=== PATIENT | female | born 1960 | race Caucasian/White ===

== ENCOUNTER 2024-08-06 10:21 | Emergency (ER) | payer OTHER ==
[~2024-08-06] VITALS: Ht 167.6 cm; Wt 76.7 kg
[~2024-08-06 10:21] MED LIST: CIME400T PO; ORPH100T2 PO; TIZA-180 PO; TRAM50TA2 PO
[2024-08-06 11:37] LABS: BASOPHILS % (AUTO) 0.7 % (0.0-2.0); EOSINOPHILS # (AUTO) 0.3 K/uL (0.0-0.7); HEMATOCRIT 41.1 % (31.2-41.9); HEMOGLOBIN 13.9 g/dL (10.9-14.3); LYMPHOCYTES # (AUTO) 1.8 K/uL (0.8-4.8); LYMPHOCYTES % (AUTO) 32.6 % (20.5-51.5); MEAN CORPUSCULAR HEMOGLOBIN 32.5 uug (24.7-32.8); MEAN CORPUSCULAR HGB CONC 34 g/dL (32.3-35.6); MEAN CORPUSCULAR VOLUME 96.2 fL (75.5-95.3); MONOCYTES # (AUTO) 0.4 K/uL (0.1-1.30); MONOCYTES % (AUTO) 7.1 % (0.0-11.0); NEUTROPHILS % (AUTO) 53.6 % (38.5-71.5); PLATELET COUNT (AUTO) 241 K/uL (179-408); RED BLOOD CELL COUNT(AUTO) 4.28 MIL/uL (3.63-4.92); RED CELL DISTRIBUTION WIDTH 12.4 % (12.3-17.7); WHITE BLOOD COUNT (AUTO) 5.5 K/uL (3.8-11.8)
[2024-08-06] MEDS ORDERED: MECLIZINE HCL 25 MG TABLET ONE (11:46)
[2024-08-06 11:47] LABS: CALCIUM 9.9 mg/dL (8.5-10.1); CARBON DIOXIDE 26 mmol/L (21-32); CHLORIDE 108 mmol/L (98-107); CREATININE 0.8 mg/dL (0.6-1.3); GLUCOSE 103 mg/dL (74-106); POTASSIUM 4.3 mmol/L (3.5-5.1); SODIUM SERUM 144 mmol/L (136-145); UREA NITROGEN, BLOOD 11 mg/dL (7-18)
[2024-08-06] MEDS: MECLIZINE HCL 25 MG TABLET PO ONE (11:47)
[2024-08-06 12:01] LABS: DIFFERENTIAL COMMENT 1
[2024-08-06 12:02] LABS: ALANINE AMINOTRANSFERASE 23 U/L (14-59); ALBUMIN 3.4 g/dL (3.4-5.0); ALKALINE PHOSPHATASE 111 U/L (50-136); ASPARTATE AMINOTRANSFERASE 16 U/L (15-37); BILIRUBIN,DIRECT 0.1 mg/dL (0.0-0.2); BILIRUBIN,TOTAL 0.3 mg/dL (0.2-1.0); NT-PRO BNP 76 pg/mL (0-125); TOTAL PROTEIN, SERUM 6.8 g/dL (6.4-8.2)
[2024-08-06] MEDS ORDERED: METOCLOPRAMIDE HCL 10 MG/2 ML VIAL ONE (12:46)
[2024-08-06] MEDS ORDERED: diphenhydrAMINE 50 MG/1 ML VIAL ONE (12:48)
[2024-08-06] MEDS: diphenhydrAMINE 50 MG/1 ML VIAL IV ONE (12:52)
[2024-08-06] MEDS: METOCLOPRAMIDE HCL 10 MG/2 ML VIAL IV ONE (12:52)
[2024-08-06] MEDS ORDERED: SWABABLE VALVE TRANSFER SET EA MC ONE (13:33)
[2024-08-06] MEDS ORDERED: IOHEXOL 350 100 ML INFUS..BTL ONE (13:33)
[2024-08-06] MEDS ORDERED: IV NORMAL SALINE 250 ML IV ONE (13:34)
[2024-08-06] MEDS ORDERED: PRED50TA PO (15:30)
[2024-08-06] MEDS ORDERED: MECL-159 PO (15:30)
[2024-08-06 15:48] VITALS: BP 129/65; TEMP 97.8; O2SAT 98
== END 2024-08-06 15:49 | disposition home or self-care (01) ==
LOC: ER 10:21
DX: R42 Dizziness and giddiness (principal); R94.31 Abnormal electrocardiogram [ECG] [EKG]; Z79.52 Long term (current) use of systemic steroids; Z88.5 Allergy status to narcotic agent; Z88.7 Allergy status to serum and vaccine
CPT/HCPCS: 99285; 70496; 96374; 96375; 80076; 80048; 83880; 85025; 85651; 85730; 84484; 36415; 70498; 93005; 70450; J1200; J2765; Q9967; A4606; A4663; J8597